=== PATIENT | male | born 2000 | race Asian ===

== ENCOUNTER 2023-06-20 11:59 | Emergency (ER) | payer OTHER ==
[~2023-06-20] VITALS: Ht 180.3 cm; Wt 93.2 kg
[2023-06-20] MEDS ORDERED: HYDR-3831 PO (15:55)
[2023-06-20] MEDS ORDERED: OLAN7.5T22 PO (15:55)
[2023-06-20] MEDS ORDERED: BUPR-344 PO (15:55)
[2023-06-20 16:07] VITALS: TEMP 98.1
[2023-06-20] MEDS ORDERED: BUPR-225 PO (16:12)
[2023-06-20] MEDS ORDERED: DUPI300P SQ (16:12)
[2023-06-20] MEDS ORDERED: RIZA10TA42 PO (16:12)
[2023-06-20] MEDS ORDERED: LISD40CA PO (16:12)
[2023-06-20] MEDS ORDERED: HYDR-4527 PO (16:12)
[2023-06-20] MEDS ORDERED: BUSP10TA23 PO (16:12)
[2023-06-20 16:46] LABS: BASOPHILS % (AUTO) 0.3 % (0.0-2.0); EOSINOPHILS % (AUTO) 0.9 % (1.0-6.0); HEMATOCRIT 42.9 % (41-53); HEMOGLOBIN 13.9 g/dL (13.5-17.5); LYMPHOCYTES # (AUTO) 2.5 K/uL (1.0-4.8); MEAN CORPUSCULAR HEMOGLOBIN 28.2 pg (26.0-34.0); MEAN CORPUSCULAR HGB CONC 32.4 G/dL (31.0-37.0); MEAN CORPUSCULAR VOLUME 87 fL (80-100); MONOCYTES # (AUTO) 0.5 K/uL (0.1-1.0); NEUTROPHILS % (AUTO) 68.8 % (40.0-70.0); PLATELET COUNT (AUTO) 297 K/uL (150-450); RED BLOOD CELL COUNT(AUTO) 4.92 MIL/uL (4.50-5.90); RED CELL DISTRIBUTION WIDTH 12.4 % (11.5-14.5); WHITE BLOOD COUNT (AUTO) 10.1 K/uL (4.5-11.0)
[2023-06-20 16:55] LABS: ANION GAP 7 mmol/L (8-16); CARBON DIOXIDE 27 mmol/L (22-29); CHLORIDE 103 mmol/L (98-107); CREATININE 1.03 mg/dL (0.60-1.30); GLUCOSE,RANDOM 87 mg/dL (70-110); POTASSIUM 3.7 mmol/L (3.5-5.1); SODIUM SERUM 137 mmol/L (136-145); UREA NITROGEN, BLOOD 25 mg/dL (7-18)
[2023-06-20 16:56] LABS: CALCIUM, TOTAL 9.2 mg/dL (8.8-10.5); GLOMERULAR FILTR. RATE CALC > 60 mL/min (>60)
[2023-06-20 17:01] LABS: ALANINE AMINOTRANSFERASE 30 U/L (12-78); ALBUMIN 4.2 g/dL (3.4-5.0); ALKALINE PHOSPHATASE 72 U/L (46-116); ASPARTATE AMINOTRANSFERASE 27 U/L (15-37); BILIRUBIN,TOTAL 0.4 mg/dL (0.1-1.0); TOTAL PROTEIN, SERUM 7.6 g/dL (6.4-8.2)
[2023-06-20 17:14] LABS: COVID AG,FIA SOURCE NASOPHARYNGEAL
[2023-06-20 17:17] LABS: ALCOHOL, BLOOD (SERUM) < 3 mg/dL (0-10)
[2023-06-20 17:34] LABS: SARS-COV2 (COVID) ANTIGEN,FIA Negative (Negative)
[2023-06-20 17:48] LABS: ALCOHOL, URINE DRUG SCREEN NEGATIVE (NEGATIVE); AMPHET/METH SCREEN,URINE NEGATIVE (NEGATIVE); BARBITURATE SCREEN, URINE NEGATIVE (NEGATIVE); BENZODIAZEPINES SCREEN,URINE NEGATIVE (NEGATIVE); CANNABINOID SCREEN,URINE POSITIVE (NEGATIVE); COCAINE SCREEN,URINE NEGATIVE (NEGATIVE); METHADONE SCREEN, URINE NEGATIVE (NEGATIVE); OPIATE SCREEN,URINE NEGATIVE (NEGATIVE); PHENCYCLIDINE SCREEN,URINE NEGATIVE (NEGATIVE)
[2023-06-20] MEDS ORDERED: HALOPERIDOL 5 MG TABLET PO ONE (23:30)
[2023-06-20] MEDS ORDERED: LORazepam 1 MG TABLET PO ONE (23:30)
[2023-06-21 02:07] VITALS: BP 155/95; PULSE 80; RESP 18
== END 2023-06-21 02:17 | disposition short-term general hospital (02) ==
LOC: EMS 12:02
DX: G43.909 Migraine, unspecified, not intractable, without status migrainosus (principal); F23 Brief psychotic disorder; F31.9 Bipolar disorder, unspecified; F07.81 Postconcussional syndrome; F41.9 Anxiety disorder, unspecified; Z20.822 Contact with and (suspected) exposure to COVID-19
CPT/HCPCS: 99285; 87426; 80053; 85025; 36415; 80307; G0480